=== PATIENT | male | born 2000 | race African-American/Black ===

== ENCOUNTER 2021-09-13 02:04 | Inpatient (IN) | payer SELFPAY ==
[2021-09-13] MEDS ORDERED: Promethazine HCl 25 MG/ML VIAL IM PRN ×3 (03:26→15:46)
[2021-09-13] MEDS ORDERED: Dextrose 50% Abboject 50 ML SYRINGE SLOW IVP PRN (03:26)
[2021-09-13] MEDS ORDERED: hydrALAZINE 20 MG/ML VIAL SLOW IVP PRN (03:26)
[2021-09-13] MEDS ORDERED: Ondansetron ODT 4 MG TAB PO PRN (03:26)
[2021-09-13] MEDS ORDERED: Dextrose 5% in Water 1,000 ML IV PRN (03:26)
[2021-09-13] MEDS ORDERED: Ondansetron PF 4 MG/2 ML Vial IVP PRN (03:26)
[2021-09-13] MEDS ORDERED: traMADol HCl 50 MG TAB PO PRN ×2 (03:29)
[2021-09-13] MEDS ORDERED: Cyclobenzaprine 10 MG TAB PO PRN (03:29)
[2021-09-13 03:55] VITALS: BMI 28.1
[2021-09-13] MEDS: Sodium Chloride 0.9% 1,000 ML IV SCH ×2 (04:00→11:50)
[2021-09-13] MEDS: Morphine 4 MG/ML VIAL SLOW IVP PRN ×2 (04:15→08:28)
[2021-09-13] MEDS ORDERED: Ketorolac Tromethamine 30 MG/ML VIAL IVP SCH ×2 (04:15→18:00)
[2021-09-13] MEDS: Ibuprofen 800 MG TAB PO SCH ×3 (04:24→20:47)
[2021-09-13] MEDS: Acetaminophen 500 MG TAB PO SCH ×3 (04:24→17:41)
[2021-09-13 05:36] LABS: #Monocytes 0.9 thou/uL (0.11-0.59); #Neutrophils 8.2 thou/uL (1.40-6.50); %Basophils 0.1 % (0.0-1.0); %Eosinophils 0.2 % (0.0-10.0); %Lymphocytes 10.2 % (21.0-51.0); %Monocytes 8.6 % (0.0-10.0); %Neutrophils 80.9 % (42.0-75.0); Hemoglobin 11.7 g/dL (14.0-18.0); Mean Corpuscular HGB CONC 33.8 g/dL (32.0-36.0); Mean Corpuscular Hemoglobin 30.9 pg (27.0-31.0); Mean Corpuscular Volume 91.5 fL (78.0-98.0); Mean Platelet Volume 8.7 fL (7.4-10.4); Platelet Count 220 thou/uL (130-400); RBC Distribution Width 12.5 % (11.5-14.5); White Blood Cell (WBC) Count 10.1 thou/uL (4.8-10.8)
[2021-09-13 05:58] LABS: Alcohol Less than 10 mg/dL (Less than 10); Anion Gap 12 mmol/L (10-20); BUN (Urea Nitrogen) 11 mg/dL (8.9-20.6); Calc. Creatinine Clearance 158 mL/min (70-130); Calcium 8.8 mg/dL (7.8-10.44); Carbon Dioxide 24 mmol/L (22-29); Chloride 106 mmol/L (98-107); Glucose 109 mg/dL (70-105); Magnesium 1.6 mg/dL (1.6-2.6); Potassium 3.8 mmol/L (3.5-5.1); Sodium 138 mmol/L (136-145)
[2021-09-13] MEDS ORDERED: CEFAZOLIN 1 GM VIAL SLOW IVP SCH (06:00)
[2021-09-13] MEDS: CEFAZOLIN 1 GM in Sodium Chloride 0.9% 100 ML IVPB SCH ×3 (06:24→21:36)
[2021-09-13] MEDS ORDERED: Magnesium Sulfate 3 GM in Sodium Chloride 0.9% 100 ML IV SCH (07:30)
[2021-09-13] MEDS: Famotidine 20 MG TAB PO SCH ×2 (08:27→20:47)
[2021-09-13 09:51] LABS: Amphetamine Not Detected (NotDetected); Barbiturates Screen Not Detected (NotDetected); Benzodiazepine Screen Not Detected (NotDetected); Cocaine Metabolite Screen Not Detected (NotDetected); Methadone Not Detected (NotDetected); Methamphetamine Not Detected (NotDetected); Opiate Screen Detected (NotDetected); Oxycodone Screen Not Detected (NotDetected); Phencyclidine (PCP) Not Detected (NotDetected); THC/Cannabinoid Screen Detected (NotDetected); Tricyclic Screen Not Detected (NotDetected)
[2021-09-13] MEDS ORDERED: ceFAZolin Sodium/D5W 2 GM in Premix Bag 1 BAG IVPB SCH (10:00)
[2021-09-13] MEDS ORDERED: ceFAZolin 2 GM/DEX 5% 100 ML BAG ONE (12:08)
[2021-09-13] MEDS ORDERED: Fentanyl 100 MCG/2 ML VIAL ONE ×2 (13:21→16:33)
[2021-09-13] MEDS ORDERED: HYDROmorphone 0.5 MG/0.5 ML SYRINGE ONE (13:21)
[2021-09-13] MEDS ORDERED: Neomycin-Polymyxin 1 ML AMP ONE ×2 (13:38→13:39)
[2021-09-13] MEDS ORDERED: PROPOFOL 200 MG/20 ML VIAL ONE (13:50)
[2021-09-13] MEDS ORDERED: Ondansetron PF 4 MG/2 ML Vial ONE (13:50)
[2021-09-13] MEDS ORDERED: Lidocaine 1% PF 5 ML VIAL ONE (13:50)
[2021-09-13] MEDS ORDERED: Dexamethasone 20 MG/5 ML VIAL ONE (13:50)
[2021-09-13] MEDS ORDERED: Ketorolac Tromethamine 30 MG/ML VIAL ONE ×2 (13:50→16:06)
[2021-09-13] MEDS ORDERED: EPINEPHrine 1 MG/ML AMP ONE (15:41)
[2021-09-13] MEDS ORDERED: Bupivacaine PF 0.5% 30 ML VIAL ONE (15:41)
[2021-09-13] MEDS ORDERED: Promethazine HCl 25 MG/ML VIAL IVPB PRN (15:46)
[2021-09-13] MEDS ORDERED: HYDROmorphone 2 MG/ML VIAL SLOW IVP PRN (15:46)
[2021-09-13] MEDS ORDERED: Ondansetron HCl/PF 4 MG/2 ML Vial IVP PRN (15:46)
[2021-09-13] MEDS ORDERED: Meperidine HCl/PF 25 MG/ML VIAL SLOW IVP PRN (15:46)
[2021-09-13] MEDS ORDERED: Acetaminophen 325 MG TAB PO PRN (16:03)
[2021-09-13] MEDS ORDERED: HYDROcodone/Acetaminophen 10/325 mg Tablet PO PRN ×2 (16:03)
[2021-09-13] MEDS ORDERED: Morphine 4 MG/ML VIAL SLOW IVP PRN (16:03)
[2021-09-13] MEDS ORDERED: TETANUS AND DIPHTHERIA TOX/PF 0.5 ML DISP.SYRIN IM SCH (16:15)
[2021-09-13] MEDS ORDERED: Communication Order-Pharmacy FS SCH (16:15)
[2021-09-13] MEDS ORDERED: Meperidine HCl/PF 25 MG/ML VIAL ONE (16:33)
[2021-09-13] MEDS: Aspirin 81 mg Enteric Coated Tablet PO SCH (20:47)
[2021-09-13] MEDS ORDERED: CEFAZOLIN 2 GM in Premix Bag 1 BAG IVPB SCH (22:00)
[2021-09-14] MEDS: Acetaminophen 500 MG TAB PO SCH ×5 (00:52→23:36)
[2021-09-14 06:03] LABS: #Lymphocytes 1.3 thou/uL (1.20-3.40); #Monocytes 1.2 thou/uL (0.11-0.59); #Neutrophils 6.3 thou/uL (1.40-6.50); %Lymphocytes 14.6 % (21.0-51.0); %Monocytes 13.9 % (0.0-10.0); %Neutrophils 71.4 % (42.0-75.0); Hemoglobin 9.5 g/dL (14.0-18.0); Mean Corpuscular HGB CONC 34.8 g/dL (32.0-36.0); Mean Corpuscular Hemoglobin 31.9 pg (27.0-31.0); Mean Corpuscular Volume 91.6 fL (78.0-98.0); Mean Platelet Volume 8.8 fL (7.4-10.4); Platelet Count 188 thou/uL (130-400); RBC Distribution Width 12.6 % (11.5-14.5); Red Blood Cell (RBC) Count 2.98 mill/uL (4.70-6.10); White Blood Cell (WBC) Count 8.8 thou/uL (4.8-10.8)
[2021-09-14] MEDS: CEFAZOLIN 1 GM in Sodium Chloride 0.9% 100 ML IVPB SCH (06:07)
[2021-09-14] MEDS: Ibuprofen 800 MG TAB PO SCH ×3 (06:09→20:59)
[2021-09-14 06:29] LABS: Anion Gap 13 mmol/L (10-20); BUN (Urea Nitrogen) 10 mg/dL (8.9-20.6); Calc. Creatinine Clearance 160 mL/min (70-130); Calcium 8.5 mg/dL (7.8-10.44); Carbon Dioxide 23 mmol/L (22-29); Chloride 105 mmol/L (98-107); Glucose 93 mg/dL (70-105); Magnesium 1.9 mg/dL (1.6-2.6); Phosphorus 2.9 mg/dL (2.3-4.7); Potassium 4.2 mmol/L (3.5-5.1); Sodium 137 mmol/L (136-145)
[2021-09-14] MEDS: Aspirin 81 mg Enteric Coated Tablet PO SCH ×2 (08:28→20:58)
[2021-09-14] MEDS: Famotidine 20 MG TAB PO SCH ×2 (08:28→20:58)
[2021-09-14] MEDS: ceFAZolin Sodium/D5W 2 GM in Premix Bag 1 BAG IVPB SCH ×2 (14:05→20:57)
[2021-09-14] MEDS: Senokot S 8.6-50 MG TAB PO SCH (20:58)
[2021-09-15] MEDS: ceFAZolin Sodium/D5W 2 GM in Premix Bag 1 BAG IVPB SCH (05:56)
[2021-09-15] MEDS: Ibuprofen 800 MG TAB PO SCH ×2 (05:57→14:28)
[2021-09-15] MEDS: Acetaminophen 500 MG TAB PO SCH ×2 (05:57→11:24)
[2021-09-15 07:03] LABS: Anion Gap 11 mmol/L (10-20); BUN (Urea Nitrogen) 7 mg/dL (8.9-20.6); Calc. Creatinine Clearance 156 mL/min (70-130); Calcium 8.8 mg/dL (7.8-10.44); Carbon Dioxide 27 mmol/L (22-29); Chloride 105 mmol/L (98-107); Glucose 92 mg/dL (70-105); Magnesium 1.8 mg/dL (1.6-2.6); Phosphorus 2.8 mg/dL (2.3-4.7); Sodium 139 mmol/L (136-145)
[2021-09-15] MEDS: Senokot S 8.6-50 MG TAB PO SCH (08:38)
[2021-09-15] MEDS: Aspirin 81 mg Enteric Coated Tablet PO SCH (08:38)
[2021-09-15] MEDS: Famotidine 20 MG TAB PO SCH (08:39)
[2021-09-15] MEDS ORDERED: Polyethylene Glycol 3350 17 GM Packet PO SCH (09:00)
[2021-09-15 09:11] LABS: Hemoglobin 9.5 g/dL (14.0-18.0); Mean Corpuscular Hemoglobin 31.3 pg (27.0-31.0); Mean Corpuscular Volume 91.9 fL (78.0-98.0); Mean Platelet Volume 8.9 fL (7.4-10.4); Platelet Count 193 thou/uL (130-400); RBC Distribution Width 12.4 % (11.5-14.5); Red Blood Cell (RBC) Count 3.03 mill/uL (4.70-6.10); White Blood Cell (WBC) Count 9.2 thou/uL (4.8-10.8)
[2021-09-15 09:12] LABS: Band 7 % (5-11); Lymphocytes 21 % (21-51); MDiff Complete? YES; Monocytes 18 % (0-10); Neutrophil 54 % (42-75); Platelet Morphology Comment Appears Adequate; Polychromasia SLIGHT = 2-3 cells (100X) (0-2/hpf)
[2021-09-15 11:28] VITALS: BP 126/59; TEMP 98.3
[2021-09-16] MEDS ORDERED: FLU VACC QS2021-22(6MOS UP)/PF 60 MCG/0.5 ML SYRINGE IM ONE (09:00)
== END 2021-09-15 15:58 | disposition home or self-care (01) | DRG 482 ==
LOC: SURG A 02:58
PROVIDERS: ADMIT Surgery; ATTEND Surgery
PROC: 0QSC04Z Reposition Left Lower Femur with Internal Fixation Device, Open Approach (ICD-10-PCS; principal; 2021-09-13)
DX: S72.412A Displaced unspecified condyle fracture of lower end of left femur, initial encounter for closed fracture (principal); Z20.822 Contact with and (suspected) exposure to COVID-19; W34.00XA Accidental discharge from unspecified firearms or gun, initial encounter; Y92.009 Unspecified place in unspecified non-institutional (private) residence as the place of occurrence of the external cause
CPT/HCPCS: 36415; 76000; 80048; 80306; 80307; 82550; 83735; 84100; 85025; C1713; J0171; J0690; J1100; J1170; J1885; J2175; J2270; J2405; J2704; J3010; J3475; J3490; J7050; S0020